=== PATIENT | female | born 1985 | race African-American/Black ===

== ENCOUNTER 2017-10-20 12:36 | Emergency (ER) | payer MEDICAID ==
--- NOTE | 2017-10-20 14:37 | ER Document Report ---
HPI - HPI Patient complains to provider of: well check Pain Level: Denies Context: Patient is a 32-year-old female who presents emergency department for a chief complaint of a wound check. Patient states she had headache last for 3 days consistent with her history of migraines took Motrin and it resolved. She was sent here by her employer for a well check. She denies any fevers, chills, neck pain, headache, dizziness, altered mental status, vision changes, sore throat, difficulty swallowing, difficulty breathing, chest pain. Otherwise healthy female. Non-smoker - NEURO Neurology: REPORTS: Headache Past Medical History - Social History Smoking Status: Unknown if Ever Smoked Family History: Reviewed & Not Pertinent Patient has suicidal ideation: No Patient has homicidal ideation: No Neurological Medical History: Reports: Hx Migraine Renal/ Medical History: Denies: Hx Peritoneal Dialysis Past Surgical History: Reports: Hx Appendectomy, Hx Section Vertical Provider Document - CONSTITUTIONAL Agree With Documented VS: Yes Notes: PHYSICAL EXAM GENERAL: Alert, interacts well. HEAD: Normocephalic, atraumatic. EYES: Pupils equal, round, and reactive to light. Extraocular movements intact. ENT: Oral mucosa moist, tongue midline. NECK: Full range of motion. Supple. Trachea midline. EXTREMITIES: Moves all 4 extremities spontaneously. No edema, radial and dorsalis pedis pulses 2/4 bilaterally. No cyanosis. NEUROLOGICAL: Face symmetric. Tongue protrudes midline. Extraocular motions intact. Pupils are 2 mm and equally reactive. Normal speech, normal gait. 5 out of 5 strength in both the distal and proximal upper and lower extremities bilaterally. Sensation is grossly intact throughout. Finger to nose testing normal. Pronator drift normal. PSYCH: Normal affect, normal mood. SKIN: Warm, dry, normal turgor. No rashes or lesions noted. - INFECTION CONTROL TRAVEL OUTSIDE OF THE [place] IN LAST 30 DAYS: No - RESPIRATORY O2 Sat by Pulse Oximetry: 99 Course - Re-evaluation Re-evalutation: 10/20/17 14:33 Patient presents with complaint for a well check for headache that is consistent with her history of migraines that did not appear to be concerning for any acute life-threatening pathology. Patient does not have any focal neurologic deficits, nuchal rigidity, vital signs are within normal limits no papilledema. Patient is otherwise no acute distress and hemodynamically stable. Low index for suspicion of acute subarachnoid hemorrhage, meningitis or mass. Low suspicion for acute life-threatening etiology with intact neuro exam therefore no additional imaging or laboratory testing is indicated. Will discharge patient home with strict follow-up with PCP for blood pressure check within the next week. At this time, based on the reassuring evaluation, - Vital Signs Vital signs: Temp Pulse Resp BP Pulse Ox 97.6 F 77 17 129/67 H 99 10/20/17 12:45 10/20/17 12:45 10/20/17 12:45 10/20/17 12:45 10/20/17 12:45 Discharge - Discharge Clinical Impression: Well adult health check Condition: Good Disposition: HOME, SELF-CARE Instructions: Headache ([facility]) Forms: Return to Work
[2017-10-20 14:56] VITALS: BP 119/61
== END 2017-10-20 14:56 | disposition home or self-care (01) ==
LOC: ER 12:36
DX: Z71.1 Person with feared health complaint in whom no diagnosis is made (principal)
CPT/HCPCS: 99282

== ENCOUNTER 2018-01-10 08:50 | Emergency (ER) | payer MEDICAID ==
[2018-01-10 08:55] VITALS: BP 134/75
--- NOTE | 2018-01-10 09:43 | ER Document Report ---
HPI - HPI Patient complains to provider of: Migraine headache Onset: Other - Since getting better Onset/Duration: Better Quality of pain: Achy, Throbbing Severity: Severe Pain Level: Denies Associated Symptoms: Headache, Nausea Exacerbated by: Other - When she becomes lightheaded or nauseated Relieved by: Denies Similar symptoms previously: Yes Recently seen / treated by doctor: Yes - ROS ROS below otherwise negative: Yes - CONSTITUTIONAL Constitutional: DENIES: Fever, Chills - EENT EENT: DENIES: Sore Throat, Ear Pain, Nasal Drainage-Clear, Nasal Drainage- Purulent, Congestion, Eye problems - NEURO Neurology: REPORTS: Headache. DENIES: Weakness, Vision blurred, Dizzinesss / Vertigo - CARDIOVASCULAR Cardiovascular: DENIES: Chest pain - RESPIRATORY Respiratory: DENIES: Trouble Breathing, Coughing - GASTROINTESTINAL Gastrointestinal: DENIES: Abdominal Pain, Nausea, Patient vomiting, Diarrhea, Constipation, Black / Bloody Stools - URINARY Urinary: DENIES: Dysuria, Urgency, Frequency - REPRODUCTIVE Reproductive: DENIES: :, Postmenopausal, Abnormal bleeding / discharge - MUSCULOSKELETAL Musculoskeletal: DENIES: Extremity pain, Back Pain, Neck Pain, Swelling - DERM Skin Color: Normal Skin Problems: None Past Medical History - General Information source: Patient - Social History Smoking Status: Never Smoker Cigarette use (# per day): No Chew tobacco use (# tins/day): No Smoking Education Provided: No Frequency of alcohol use: None Drug Abuse: None Family History: Reviewed & Not Pertinent Patient has suicidal ideation: No Patient has homicidal ideation: No - Past Medical History Cardiac Medical History: Reports: Hx Heart Murmur Pulmonary Medical History: Reports: Hx Bronchitis EENT Medical History: Reports: None Neurological Medical History: Reports: Hx Migraine Endocrine Medical History: Reports: None Renal/ Medical History: Reports: None Malignancy Medical History: Reports: None GI Medical History: Reports: None Musculoskeltal Medical History: Reports None Skin Medical History: Reports None Psychiatric Medical History: Reports: None Traumatic Medical History: Reports: None Infectious Medical History: Reports: None Past Surgical History: Reports: Hx Section - Immunizations Immunizations up to date: Yes Vertical Provider Document - CONSTITUTIONAL Agree With Documented VS: Yes Exam Limitations: No Limitations General Appearance: WD/WN, No Apparent Distress - INFECTION CONTROL TRAVEL OUTSIDE OF THE [place] IN LAST 30 DAYS: No - HEENT HEENT: Atraumatic, Normal ENT Exam, Normocephalic, PERRLA - NECK Neck: Normal Inspection, Supple - RESPIRATORY Respiratory: Breath Sounds Normal, No Respiratory Distress, Chest Non-Tender - CARDIOVASCULAR Cardiovascular: Regular Rate, Regular Rhythm - MUSCULOSKELETAL/EXTREMETIES Musculoskeletal/Extremeties: MAEW, FROM, Non-Tender - NEURO Level of Consciousness: Awake, Alert, Appropriate Motor/Sensory: No Motor Deficit, No Sensory Deficit, No Pronator Drift - DERM Integumentary: Warm, Dry, No Rash Course - Re-evaluation Re-evalutation: 01/10/18 10:13 Patient was given instructions concerning migraine prevention and she is on Topamax for this. She was also given prescriptions for Compazine and ibuprofen to treat migraines. She was given a work note to go back to work today as she states her headache is much better. She was instructed to please follow-up with her primary doctor and have them run full labs to rule out hypoglycemia as her cause of migraines as she states she always gets lightheaded and nauseated and then the migraine starts. - Vital Signs Vital signs: Temp Pulse Resp BP Pulse Ox 98.1 F 74 16 134/75 H 97 01/10/18 08:54 01/10/18 08:54 01/10/18 08:54 01/10/18 08:54 01/10/18 08:54 Discharge - Discharge Clinical Impression: Migraine Qualifiers: Migraine type: other Status migrainosus presence: without status migrainosus Intractability: not intractable Qualified Code(s): G43.809 - Other migraine, not intractable, without status migrainosus Condition: Stable Disposition: HOME, SELF-CARE Additional Instructions: HEADACHE: The physician does not feel that the headache you are experiencing has a serious underlying cause. Most headaches are due to emotional stress, with resultant muscle tension (tension headache). Occasionally, headaches are secondary to changes in the blood vessels of the scalp (vascular headache and migraine headache). Sometimes, a headache is the first symptom of another developing illness, such as a viral infection. You have no evidence of stroke, bleeding, meningitis, or other serious cause of your headache. The treatment of headaches varies with the severity and cause of the pain. Not all headaches need pain shots. In fact, there is evidence that using narcotics for headaches may make them worse in the long run. The physician will determine the therapy that's in your best interest. If you develop a fever, if the headache is different from any you've previously experienced, or if the headache progressively worsens, then call your physician at once or go to the emergency room. USE OF DIPHENHYDRAMINE: Diphenhydramine (Benadryl) is an antihistamine and has been recommended to help treat your headache and to prevent side effects of other medications used to treat headaches. The medication can be repeated four times daily. Age Elixir (12.5 mg/tsp) 25 mg pill adult 1-2 tabs Antihistamines may cause drowsiness, especially with the first dose. Do not operate machinery or drive while under the effects of the medication. Do not combine the medication with alcohol, or with any other medication without talking to your doctor. ANTINAUSEA MEDICATION: You have been given a medication to suppress nausea and vomiting. This type of medication can be given as a shot, pill, or suppository. It will usually last for many hours. Pills and shots usually last six to eight hours, suppositories last about 12 hours. For the typical illness, only one or two doses of the medication may be necessary. Mild lightheadedness may occur. This type of medicine can cause drowsiness. Do not drive or operate dangerous machinery while under its influence. Do not mix with alcohol. See your doctor at once if you have muscle spasms or tightness, or uncontrollable motions (particularly of the neck, mouth, or jaw). Persistent vomiting or severe lightheadedness should also be evaluated by the physician. COMPAZINE FOR HEADACHE: You have received therapy for headaches, using oral Compazine. This treatment is dramatically successful in relieving the headache in about 50 percent of cases. When it works, it provides method of eliminating the headache without resorting to narcotics (and the problems associated with them). Most patients still feel fully alert after the Compazine, but others may be slightly drowsy. It's best not to drive or work with machinery for six to eight hours. Do not take alcohol or other medication unless you discuss it with the doctor. If you develop tightness and spasms in your muscles, especially the neck and tongue, you should return. This is a side effect which can be treated. Ibuprofen Ibuprofen is an excellent, safe drug for pain control. In addition, it has potent antiinflammatory effects which are beneficial, especially in the treatment of injuries, arthritis, or tendonitis. It's best to take ibuprofen with food. Persons with ulcer disease or allergy to aspirin should notify their physician of this before taking ibuprofen. Take the medication exactly as prescribed. Don't take additional doses unless instructed to do so by your doctor. If you develop wheezing, shortness of breath, hives, faintness, stomach pain, vomiting, or dark black stools, return for re-evaluation at once. FOLLOW-UP CARE: If you have been referred to a physician for follow-up care, call the physician s office for an appointment as you were instructed or within the next two days. If you experience worsening or a significant change in your symptoms, notify the physician immediately or return to the Emergency Department at any time for re-evaluation. Prescriptions: Prochlorperazine Maleate [Compazine 10 mg Tablet] 10 mg PO Q6HP PRN #10 tablet PRN Reason: Ibuprofen 800 mg PO Q8HP PRN #20 tablet PRN Reason: Forms: Elevated Blood Pressure, Return to Work Referrals: LEE MANZANO PA [Primary Care Provider] - Follow up as needed
== END 2018-01-10 09:47 | disposition home or self-care (01) ==
LOC: ER 08:50
DX: G43.909 Migraine, unspecified, not intractable, without status migrainosus (principal); Z79.899 Other long term (current) drug therapy
CPT/HCPCS: 99283

== ENCOUNTER 2018-10-17 19:56 | Emergency (ER) | payer MEDICAID ==
[2018-10-17] MEDS ORDERED: METOCLOPRAMIDE HCL INJ/PF 10 MG/2 ML SDV IV ONE (20:25)
[2018-10-17] MEDS ORDERED: DIPHENHYDRAMINE HCL 50 MG/ML VIAL IV ONE (21:03)
[2018-10-17] MEDS ORDERED: KETOROLAC TROMETHAMINE INJ/PF 30 MG/1 ML SDV IV ONE (21:03)
--- NOTE | 2018-10-17 21:09 | ER Document Report ---
ED General - General Chief Complaint: Headache Stated Complaint: HEADACHE Time Seen by Provider: 10/17/18 20:25 Primary Care Provider: LEE MANZANO PA [Primary Care Provider] - Follow up as needed Notes: Patient is a 33-year-old female with a past medical history of migraine headaches who presents with 3 days of a bitemporal, stabbing, aching headache with associated nausea and photophobia. States the headache pattern is somewhat different than her normal migraines is usually progresses from where it is currently to a "full-blown headache" which she has not done so in the past several days. She also notes intermittent blurring of her vision describes this as "my eyes skipping around". She has tried naproxen and ibuprofen without resolution of her headache. Lights and sound worsen her headache. She denies associated vomiting but has been nauseated. No focal weakness, numbness or confusion. No difficulty walking. Has not seen her primary care physician regarding her current symptoms. TRAVEL OUTSIDE OF THE [place] IN LAST 30 DAYS: No - Related Data Allergies/Adverse Reactions: hydrocodone Allergy (Verified 10/20/17 12:41) Past Medical History - General Information source: Patient - Social History Smoking Status: Never Smoker Frequency of alcohol use: None Drug Abuse: None Lives with: Alone Family History: Reviewed & Not Pertinent Patient has suicidal ideation: No Patient has homicidal ideation: No - Past Medical History Cardiac Medical History: Reports: Hx Heart Murmur Pulmonary Medical History: Reports: Hx Bronchitis Neurological Medical History: Reports: Hx Migraine Renal/ Medical History: Denies: Hx Peritoneal Dialysis Past Surgical History: Reports: Hx Appendectomy, Hx Section - Immunizations Immunizations up to date: Yes Review of Systems - Review of Systems Notes: Constitutional: Negative for fever. HENT: Negative for sore throat. Eyes: Positive for photophobia Cardiovascular: Negative for chest pain. Respiratory: Negative for shortness of breath. Gastrointestinal: Negative for abdominal pain, vomiting or diarrhea. Genitourinary: Negative for dysuria. Musculoskeletal: Negative for back pain. Skin: Negative for rash. Neurological: Positive for headache 10 point ROS negative except as marked above and in HPI. Physical Exam - Vital signs Vitals: Temp Pulse Resp BP Pulse Ox 99.5 F 78 16 118/73 100 10/17/18 20:04 10/17/18 20:04 10/17/18 20:04 10/17/18 20:04 10/17/18 20:04 Interpretation: Normal Notes: PHYSICAL EXAMINATION: GENERAL: Well-appearing, well-nourished and in no acute distress. HEAD: Atraumatic, normocephalic. EYES: Pupils equal round and reactive to light, extraocular movements intact, sclera anicteric, conjunctiva are normal. ENT: nares patent, oropharynx clear without exudates. Moist mucous membranes. NECK: Normal range of motion, supple without lymphadenopathy LUNGS: Breath sounds clear to auscultation bilaterally and equal. No wheezes rales or rhonchi. HEART: Regular rate and rhythm without murmurs ABDOMEN: Soft, nontender, normoactive bowel sounds. No guarding, no rebound. No masses appreciated. EXTREMITIES: Normal range of motion, no pitting or edema. No cyanosis. NEUROLOGICAL: Face symmetric. Tongue protrudes midline. Extraocular motions intact. Pupils are 2 mm and equally reactive. Normal speech, normal gait. 5 out of 5 strength in both the distal and proximal upper and lower extremities bilaterally. Sensation is grossly intact throughout. Finger to nose testing normal. Pronator drift normal. PSYCH: Normal mood, normal affect. SKIN: Warm, Dry, normal turgor, no rashes or lesions noted. Course - Re-evaluation Re-evalutation: 10/17/18 21:07 Presentation of a headache that appears to be most consistent with tension versus migrainous type headache. Headache was not maximal in onset, patient has no focal neurologic deficits, no nuchal rigidity, vital signs within normal limits, no papilledema, and patient is overall well in appearance. Based on clinical history and examination I do not suspect an acute subarachnoid hemorrhage, dural venous sinus thrombosis, acute meningitis, or intercranial mass. Given my low clinical suspicion for any acute life-threatening etiology, I do not feel advanced neuro imaging or laboratory testing is indicated at this time. Patient has had improvement of her headache after receiving a migraine cocktail here in the emergency department. At this time will discharge with return precautions and follow-up recommendations. Verbal discharge instructions given a the bedside and opportunity for questions given. Medication warnings reviewed. Patient is in agreement with this plan and has verbalized understanding of return precautions and the need for primary care follow-up in the next 24-72 hours. - Vital Signs Vital signs: Temp Pulse Resp BP Pulse Ox 99.5 F 78 16 121/90 H 100 10/17/18 20:04 10/17/18 20:04 10/17/18 20:36 10/17/18 20:36 10/17/18 20:36 Discharge - Discharge Clinical Impression: Nausea Headache Qualifiers: Headache type: unspecified Headache chronicity pattern: acute headache Intractability: not intractable Qualified Code(s): R51 - Headache Condition: Good Disposition: HOME, SELF-CARE Additional Instructions: You have been seen in the Emergency Department (ED) for a headache. Please use Tylenol (acetaminophen) or Motrin (ibuprofen) as needed for symptoms, but only as written on the box. As we have discussed, please follow up with your primary care doctor as soon as possible regarding today's ED visit and your headache symptoms. Call your doctor or return to the ED if you have a worsening headache, sudden and severe headache, confusion, slurred speech, facial droop, weakness or numbness in any arm or leg, extreme fatigue, or other symptoms that concern you. Referrals: LEE MANZANO PA [Primary Care Provider] - Follow up as needed
[2018-10-17 21:45] VITALS: BP 116/78
== END 2018-10-17 21:45 | disposition home or self-care (01) ==
LOC: ER 19:56
DX: R51 Headache (principal); R11.0 Nausea; Z88.6 Allergy status to analgesic agent
CPT/HCPCS: 99283; 96374; 96375; J1200; J1885; J2765

== ENCOUNTER 2019-03-06 09:40 | Emergency (ER) | payer MEDICAID ==
[2019-03-06 09:45] VITALS: BP 134/65
[2019-03-06] MEDS ORDERED: PREDNISONE 20 MG TABLET PO ONE (10:27)
[2019-03-06] MEDS ORDERED: ACETAMINOPHEN 325 MG TABLET PO ONE (10:28)
--- NOTE | 2019-03-06 10:32 | ER Document Report ---
HPI - HPI Patient complains to provider of: bilat knee pain Time Seen by Provider: 03/06/19 09:56 Onset: Other - 20+ years, worse over the past month Onset/Duration: Persistent Quality of pain: Achy Pain Level: 3 Context: Patient presents complaining of bilateral knee pain that has occurred daily since she was a child. Patient states pain worsened about a month ago. Patient denies any pain relief with [id number] ibuprofen. Patient denies any injury or fever. Associated Symptoms: Other - Bilateral knee pain. denies: Fever Exacerbated by: Standing, Movement, Walking Relieved by: Denies Similar symptoms previously: Yes Recently seen / treated by doctor: No - ROS ROS below otherwise negative: Yes Systems Reviewed and Negative: Yes All other systems reviewed and negative - CONSTITUTIONAL Constitutional: DENIES: Fever, Chills - NEURO Neurology: DENIES: Headache - REPRODUCTIVE Reproductive: DENIES: : - MUSCULOSKELETAL Musculoskeletal: REPORTS: Extremity pain - kishor knees - DERM Skin Color: Normal Skin Problems: None Past Medical History - General Information source: Patient - Social History Smoking Status: Current Every Day Smoker Smoking Education Provided: Yes Frequency of alcohol use: None Drug Abuse: None Occupation: construction Family History: Reviewed & Not Pertinent Patient has suicidal ideation: No Patient has homicidal ideation: No - Past Medical History Cardiac Medical History: Reports: Hx Heart Murmur Pulmonary Medical History: Reports: Hx Bronchitis Neurological Medical History: Reports: Hx Migraine Renal/ Medical History: Denies: Hx Peritoneal Dialysis Past Surgical History: Reports: Hx Appendectomy, Hx Section - Immunizations Immunizations up to date: Yes Vertical Provider Document - CONSTITUTIONAL Agree With Documented VS: Yes Exam Limitations: No Limitations General Appearance: WD/WN, No Apparent Distress - INFECTION CONTROL TRAVEL OUTSIDE OF THE [place] IN LAST 30 DAYS: No - HEENT HEENT: Atraumatic, Normocephalic - NECK Neck: Normal Inspection - RESPIRATORY Respiratory: No Respiratory Distress - CARDIOVASCULAR Pulses: Normal: Posterior tibial, Dorsalis pedis - MUSCULOSKELETAL/EXTREMETIES Musculoskeletal/Extremeties: MAEW, FROM, Tender - Tenderness to anterior and inferior compartments of bilateral knees, no joint effusion. Normal skin color and temperature, no laxity with varus or valgus maneuvers., No Edema. negative: Eccymosis - NEURO Level of Consciousness: Awake, Alert, Appropriate Motor/Sensory: No Motor Deficit - DERM Integumentary: Warm, Dry, No Rash Course - Re-evaluation Re-evalutation: 03/06/19 10:27 Patient with bilateral knee pain, no concern for septic arthritis or gout at this time. Patient encouraged to follow-up with primary doctor for referral to either orthopedics or rheumatology for further evaluation. - Vital Signs Vital signs: Temp Pulse Resp BP Pulse Ox 98.5 F 74 16 134/65 H 99 03/06/19 09:44 03/06/19 09:44 03/06/19 09:44 03/06/19 09:44 03/06/19 09:44 Procedures - Immobilization Left Knee Pre-Proc Neuro Vasc Exam: Normal Immobilizer type: Mynor wrap Performed by: PCT Post-Proc Neuro Vasc Exam: Normal Alignment checked and good: Yes Right Knee Pre-Proc Neuro Vasc Exam: Normal Immobilizer type: Mynor wrap Performed by: PCT Post-Proc Neuro Vasc Exam: Normal Alignment checked and good: Yes Discharge - Discharge Clinical Impression: Chronic knee pain Qualifiers: Laterality: bilateral Qualified Code(s): M25.561 - Pain in right knee Condition: Stable Disposition: HOME, SELF-CARE Instructions: Acetaminophen, Mynor Wrap ([facility]), Arthralgia ([facility]), Steroid Medication Additional Instructions: Return immediately for any new or worsening symptoms Followup with your primary care provider, call tomorrow to make a followup appointment Your primary doctor can make referrals to orthopedics or rheumatology for further evaluation of your chronic knee pain Prescriptions: Diclofenac Sodium 4 gm TP QID PRN #100 gel..gram. PRN Reason: Prednisone [Deltasone 20 mg Tablet] 2 tab PO DAILY 5 Days tablet Forms: Smoking Cessation Education Referrals: LEE MANZANO PA [Primary Care Provider] - Follow up as needed
== END 2019-03-06 10:44 | disposition home or self-care (01) ==
LOC: ER 09:40
DX: M25.561 Pain in right knee (principal); M25.562 Pain in left knee; F17.200 Nicotine dependence, unspecified, uncomplicated
CPT/HCPCS: 99283; J3490; J7512

== ENCOUNTER → 2019-03-11 | Outpatient (CLI) | payer MEDICAID ==
--- NOTE | 2019-03-12 09:27 | RADIOLOGY REPORT (SQ) ---
EXAM DESCRIPTION: KNEE LEFT 4 VIEW COMPLETED DATE/TIME: 03/11/2019 5:38 pm REASON FOR STUDY: PAIN IN RIGHT KNEE, PAIN IN LEFT KNEE M25.561 PAIN IN RIGHT KNEE M25.562 PAIN IN LEFT KNEE COMPARISON: None. NUMBER OF VIEWS: Four views. TECHNIQUE: AP, lateral, and both oblique radiographic images acquired of the left knee. LIMITATIONS: None. FINDINGS: MINERALIZATION: Normal. BONES: No acute fracture or dislocation. No worrisome bone lesions. JOINT: No effusion. SOFT TISSUES: No soft tissue swelling. No radio-opaque foreign body. OTHER: No other significant finding. IMPRESSION: NEGATIVE STUDY OF THE LEFT KNEE. NO RADIOGRAPHIC EVIDENCE OF ACUTE INJURY. TECHNICAL DOCUMENTATION: JOB ID: [id number] [employer]- All Rights Reserved Reading location - IP/workstation name: [email or web address]
--- NOTE | 2019-03-12 09:35 | RADIOLOGY REPORT (SQ) ---
EXAM DESCRIPTION: KNEE RIGHT 4 VIEWS COMPLETED DATE/TIME: 03/11/2019 5:38 pm REASON FOR STUDY: PAIN IN RIGHT KNEE, PAIN IN LEFT KNEE M25.561 PAIN IN RIGHT KNEE M25.562 PAIN IN LEFT KNEE COMPARISON: None. NUMBER OF VIEWS: Four views. TECHNIQUE: AP, lateral, and both oblique radiographic images acquired of the right knee. LIMITATIONS: None. FINDINGS: MINERALIZATION: Normal. BONES: No acute fracture or dislocation. No worrisome bone lesions. No significant osteophytes. JOINT: No effusion. No chondrocalcinosis. OTHER: No other significant finding. IMPRESSION: NEGATIVE STUDY OF THE RIGHT KNEE. NO EXPLANATION FOR PAIN. TECHNICAL DOCUMENTATION: JOB ID: [id number] [employer]- All Rights Reserved Reading location - IP/workstation name: [email or web address]
== END ==
LOC: RAD 17:16
PROVIDERS: ATTEND Family Medicine
DX: M25.561 Pain in right knee (principal); M25.562 Pain in left knee

== ENCOUNTER 2019-04-26 10:10 | Emergency (ER) | payer MEDICAID ==
[2019-04-26 10:16] VITALS: BP 127/75
--- NOTE | 2019-04-26 10:29 | ER Document Report ---
HPI - HPI Patient complains to provider of: Left hip and right shoulder pain Time Seen by Provider: 04/26/19 10:19 Onset: Other - 3 weeks Onset/Duration: Persistent Severity: Severe Pain Level: 4 Context: This 34-year-old female presents to the emergency department with complaints of left hip and right shoulder pain for the past 3 weeks. Denies trauma. Denies other symptoms such as fever vomiting diarrhea. Reports she has had urinary frequency for over a month. Reports she was recently evaluated for the pain and treated with meloxicam. Reports she got out of the shower earlier today and her left hip was hurting. Denies trauma. Denies strain. Reports her right shoulder also hurts when she moves her arm. Denies insect bites denies rash denies trauma. Patient has full range of motion ambulating without problems. 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, no repetitive movement Associated Symptoms: None Exacerbated by: Denies Relieved by: Denies Similar symptoms previously: Yes Recently seen / treated by doctor: No - REPRODUCTIVE Reproductive: DENIES: : Past Medical History - General Information source: Patient Last Menstrual Period: just finished - Social History Smoking Status: Unknown if Ever Smoked Cigarette use (# per day): No Frequency of alcohol use: None Drug Abuse: None Occupation: real estate Lives with: Family Family History: Reviewed & Not Pertinent Patient has suicidal ideation: No Patient has homicidal ideation: No - Past Medical History Cardiac Medical History: Reports: Hx Heart Murmur Pulmonary Medical History: Reports: Hx Bronchitis Neurological Medical History: Reports: Hx Migraine Renal/ Medical History: Denies: Hx Peritoneal Dialysis Past Surgical History: Reports: Hx Appendectomy, Hx Section - Immunizations Immunizations up to date: Yes Vertical Provider Document - CONSTITUTIONAL Agree With Documented VS: Yes Exam Limitations: No Limitations General Appearance: WD/WN, No Apparent Distress - INFECTION CONTROL TRAVEL OUTSIDE OF THE [place] IN LAST 30 DAYS: No - HEENT HEENT: Atraumatic, Normocephalic. negative: Conjuctival Injection - NECK Neck: Normal Inspection, Supple. negative: Lymphadenopathy-Left, Lymphadenopathy-Right - RESPIRATORY Respiratory: Breath Sounds Normal, No Respiratory Distress - CARDIOVASCULAR Cardiovascular: Regular Rate - MUSCULOSKELETAL/EXTREMETIES Musculoskeletal/Extremeties: TRACEY, FROM, Non-Tender - Patient complains of left hip and right shoulder tenderness with movement, no tender to palpation no erythema no warmth no swelling, ambulates without problem, full range of motion to extremities. Course - Re-evaluation Re-evalutation: 04/26/19 10:34 This 34-year-old healthy female presents to the emergency department with left hip pain right shoulder pain for the past 3 weeks with extreme pain to her hip this morning. Reports she is being treated for knee pain by her primary care provider with meloxicam. Denies trauma. Denies strain or injury. No other symptoms such as fever and vomiting. Patient has full range of motion looks good no signs of infection. She was instructed to follow-up with her primary care provider for further testing or referral as indicated. No x-rays or labs done here due to no injury no trauma no other symptoms Dictation of this chart was performed using voice recognition software; therefore, there may be some unintended grammatical errors. - Vital Signs Vital signs: Temp Pulse Resp BP Pulse Ox 98.4 F 64 16 127/75 H 100 04/26/19 10:15 04/26/19 10:15 04/26/19 10:15 04/26/19 10:15 04/26/19 10:15 Discharge - Discharge Clinical Impression: Left hip pain Right shoulder pain Qualifiers: Chronicity: unspecified Qualified Code(s): M25.511 - Pain in right shoulder Condition: Stable Disposition: HOME, SELF-CARE Additional Instructions: *You have been evaluated for left hip and right shoulder pain *Take your medication as prescribed your primary care provider *Follow up with a primary care provider within 1 week for recheck *Return to ED for worsening condition, changes, needs Monitor your blood pressure. Your blood pressure was elevated today. This may be because you were anxious, in pain or because you need medication. It is important to follow up with your primary care provider for full evaluation. Forms: Elevated Blood Pressure Referrals: LEE MANZANO PA [PHYSICIAN PATTERN SCRATCHER] - Follow up as needed
== END 2019-04-26 10:39 | disposition home or self-care (01) ==
LOC: ER 10:10
DX: M25.552 Pain in left hip (principal); M25.511 Pain in right shoulder; R35.0 Frequency of micturition
CPT/HCPCS: 99283

== ENCOUNTER → 2019-07-15 | Outpatient (CLI) | payer MEDICAID ==
--- NOTE | 2019-07-15 15:10 | RADIOLOGY REPORT (SQ) ---
EXAM DESCRIPTION: MRI LT LOWER JOINT WITHOUT COMPLETED DATE/TIME: 07/15/2019 1:28 pm REASON FOR STUDY: M25.562 PAIN IN LEFT KNEE M25.562 PAIN IN LEFT KNEE COMPARISON: None. TECHNIQUE: Leftknee images acquired and stored on PACS. Multiplanar images include fat sensitive se quences as T1, water sensitive sequences as FST2 or STIR, cartilage sensitive sequences as FSPD, and gradient echo sequences. LIMITATIONS: None. FINDINGS: JOINT AND BURSAE: No effusion. 9 mm intra-articular loose body along the posterior aspect of the joint, abutting the distal attachment of the PCL best shown on sagittal image 11 BONE CORTEX AND MARROW: No alteration of signal to suggest marrow replacement. No worrisome bone lesi ons. No occult fracture. ACL: Intact. No degeneration or ganglion cyst. PCL: Intact. MCL: Intact. No periligamentous edema or fluid. LCL: Intact. No periligamentous edema or fluid. MEDIAL MENISCUS: No tears. No abnormal signal. LATERAL MENISCUS: No tears. No abnormal signal. MEDIAL COMPARTMENT: Moderate chondromalacia at anterior aspect medial femoral condyle, sagittal image 10 and coronal image 8. No bone bruises or reactive marrow edema. No osteophytes. LATERAL COMPARTMENT: Cartilage preserved. No bone bruises or reactive marrow edema. No osteophytes. PATELLA: Mild patellar chondromalacia, medial patellar facet. No subchondral cysts. Medial and latera l retinacula intact. EXTENSOR MECHANISM: Intact. Quadriceps and patella tendons normal. SOFT TISSUES: Adjacent muscles and subcutaneous tissues normal. Normal flow void in popliteal artery and vein. OTHER: No other significant finding. IMPRESSION: Osteoarthritis along the medial patellofemoral articulation. 9 mm loose body posterior to the distal PCL attachment. Otherwise unremarkable study. TECHNICAL DOCUMENTATION: JOB ID: [id number] [employer]- All Rights Reserved Reading location - IP/workstation name: [email or web address]
== END ==
LOC: RAD 12:40
PROVIDERS: ATTEND Orthopaedic Surgery Sports Medicine
DX: M17.12 Unilateral primary osteoarthritis, left knee (principal); M22.42 Chondromalacia patellae, left knee; M25.562 Pain in left knee

== ENCOUNTER → 2020-05-04 | Outpatient (CLI) | payer MEDICAID ==
--- NOTE | 2020-05-04 12:49 | RADIOLOGY REPORT (SQ) ---
EXAM DESCRIPTION: LUMBAR SPINE COMPLETE IMAGES COMPLETED DATE/TIME: 05/04/2020 12:10 pm REASON FOR STUDY: OTHER SPONDYLOSIS WITH RADICULOPATHY, LUMBAR REGION M47.26 OTHER SPONDYLOSIS WITH RADICULOPATHY, LUMBAR REGION COMPARISON: 04/29/2018 NUMBER OF VIEWS: Five views including obliques. TECHNIQUE: AP, lateral, oblique, and sacral radiographic images acquired of the lumbar spine. LIMITATIONS: None. FINDINGS: MINERALIZATION: Normal. SEGMENTATION: Normal. No transitional anatomy. ALIGNMENT: Minimal convex left scoliosis. VERTEBRAE: Maintained height. No fracture or worrisome bone lesion. DISCS: Preserved height. No significant osteophytes or end plate irregularity. POSTERIOR ELEMENTS: Pedicles and facets are intact. No pars defect or posterior arch defects. HARDWARE: None in the spine. PARASPINAL SOFT TISSUES: Normal. PELVIS: Intact as visualized. No fractures or worrisome bone lesions. SI joints intact. OTHER: No other significant finding. IMPRESSION: Minimal scoliosis. No significant change. TECHNICAL DOCUMENTATION: JOB ID: [id number] 2010 [employer]- All Rights Reserved Reading location - IP/workstation name: [email or web address]
== END ==
LOC: OD 11:49
PROVIDERS: ATTEND Family Medicine
DX: M47.26 Other spondylosis with radiculopathy, lumbar region (principal)
CPT/HCPCS: 72110